=== PATIENT | female | born 1935 | race American Indian/Alaskan Native ===

== ENCOUNTER 2016-05-25 06:28 | Emergency (ER) | payer MEDICARE ==
[2016-05-25 22:52] LABS: Hematocrit 33.7 % (30.3-42.9); Hemoglobin 11.3 gm/dl (10.1-14.3); Mean Corpuscular HGB Conc 34 % (30-34); Mean Corpuscular Hemoglobin 36 pg (28-32); Mean Corpuscular Volume 108 fl (79-97); Platelet Count 146 K/mm3 (140-440); Red Blood Count 3.13 M/mm3 (3.65-5.03); White Blood Count 5.2 K/mm3 (4.5-11.0)
[2016-05-25 23:17] LABS: Albumin 2.6 g/dL (3.9-5); Albumin/Globulin Ratio 0.6 %; Bilirubin,Total 2.7 mg/dL (0.1-1.2); Calcium 8.5 mg/dL (8.4-10.2); Chloride 94.8 mmol/L (98-107); Potassium 3.2 mmol/L (3.6-5.0); Total Protein 7.2 g/dL (6.3-8.2)
[2016-05-25] MEDS ORDERED: ZOFRAN IV ONE (23:19)
[2016-05-25] MEDS ORDERED: TYLENOL #3 PO ONE (23:19)
--- NOTE | 2016-05-25 23:35 | Emergency Department Report ---
HPI - General Chief Complaint: Abdominal Pain Time Seen by Provider: 05/25/16 21:12 - HPI HPI: The patient is a 80-year-old female who presents for evaluation of abdominal pain. The patient has a history of end-stage renal disease. The patient reports epigastric abdominal pain for the past 2 days, on and off, constant since this afternoon, cramping in quality, mild in severity, and associated with nausea, nonbilious, nonbloody emesis, multiple episodes of loose watery stools. She says that her has exhibited similar symptoms over the past 2 days. The patient denies fever, chills, night sweats, chest pain, dyspnea, blood in the stool, dark tarry stool, dysuria, hematuria, flank pain, genital discharge, inability to pass flatus. ED Past Medical Hx - Past Medical History Previous Medical History?: Yes Hx Hypertension: Yes Hx Congestive Heart Failure: Yes Hx GERD: Yes Hx Liver Disease: Yes Hx Renal Disease: Yes Hx Arthritis: Yes Hx Kidney Stones: Yes Hx HIV: No Additional medical history: hep c/ lymphedema - Surgical History Past Surgical History?: Yes Hx Breast Surgery: Yes (mastectomy R.) Additional Surgical History: Fistula placement to left arm. - Social History Smoking Status: Former Smoker Substance Use Type: None - Medications Home Medications: Home Medications Medication Instructions Recorded Confirmed Last Taken Type Calcium Acetate 667 mg PO TID 06/05/13 02/12/16 03/24/15 History Enalapril Maleate (Nf) 10 mg PO DAILY 06/05/13 02/12/16 03/24/15 History Simvastatin 20 mg PO HS 06/05/13 02/12/16 03/24/15 History ALBUTEROL Inhaler [ProAir HFA 2 puff INHALATION QID 04/09/14 02/12/16 03/24/15 History Inhaler] Carvedilol [Coreg] 3.125 mg PO BID 04/22/14 02/12/16 03/24/15 History Aspirin 81 mg PO DAILY 09/25/15 02/12/16 Unknown History Furosemide 80 mg PO DAILY 09/25/15 02/12/16 Unknown History Isosorbide Mononitrate 20 mg PO DAILY 09/25/15 02/12/16 Unknown History Dorothy-Jesu Rx Tablet 1 tab PO DAILY 09/25/15 02/12/16 Unknown History Acetaminophen/Codeine [Tylenol #3] 1 tab PO Q6H PRN #12 tab 05/26/16 Unknown Rx Ondansetron [Zofran TAB] 4 mg PO Q8HR PRN #14 tablet 05/26/16 Unknown Rx ED Review of Systems ROS: Stated complaint: DIARRHEA Other details as noted in HPI Constitutional: denies: fever ENT: denies: throat or neck pain Respiratory: denies: cough, shortness of breath Cardiovascular: denies: chest pain Endocrine: denies unexplained weight loss or gain Gastrointestinal: reports abdominal pain, nausea Genitourinary: denies: dysuria Musculoskeletal: denies: leg swelling Skin: denies: rash Neurological: denies: headache Hematological/Lymphatic: denies: easy bleeding or easy bruising Psych: denies sadness or hopelessness Physical Exam - Physical Exam Vital Signs: Vital Signs 05/25/16 05/25/16 05/25/16 06:40 20:29 20:34 Temperature 97.6 F 98.4 F Pulse Rate 73 80 Respiratory 18 18 18 Rate Blood Pressure 193/94 Blood Pressure 179/86 [Left] O2 Sat by Pulse 97 98 98 Oximetry Physical Exam: General: well-nourished, well-developed, no acute distress Head: Normocephalic, atraumatic Eyes: normal sclera ENT: Mucous membranes are pink and moist Neck: trachea midline, neck supple, No neck stiffness, no cervical adenopathy Respiratory: Breath sounds equal bilaterally, no wheezing, rales, or rhonchi Cardio: S1 and S2 present, no murmurs, rubs, gallops, capillary refill is brisk Abdomen: Normoactive bowel sounds, soft abdomen, epigastric and periumbilical tenderness to palpation present, no rigidity, no guarding or rebound tenderness Musc: No pitting edema Skin: No rash Neuro: no facial drooping, normal speech Psych: Normal affect ED Course Vital Signs 05/25/16 05/25/16 05/25/16 06:40 20:29 20:34 Temperature 97.6 F 98.4 F Pulse Rate 73 80 Respiratory 18 18 18 Rate Blood Pressure 193/94 Blood Pressure 179/86 [Left] O2 Sat by Pulse 97 98 98 Oximetry ED Medical Decision Making - Lab Data Result diagrams: 05/25/16 06:47 05/25/16 22:05 - Medical Decision Making The patient was seen and examined by myself. The patient is placed on a cardiac catheterization technician and continuous pulse ox. On initial evaluation, the patient was found to be in no distress. Evaluation orders are placed. IV access is established and the patient is given IV Zofran for nausea, and a Tylenol 3 tablet for her pain. Lab results were non-concerning, and grossly consistent with previous history. The patient was reevaluated and reported that her abdominal pain and nausea were completely resolved. As the patient is afebrile , without leukocytosis, and with completely resolved abdominal pain, and no tenderness remaining on examination, the patient is stable for discharge with outpatient follow-up. The patient is given follow-up and return instructions. The patient expressed understanding and agreed with the plan. The patient is discharged in stable condition. Critical care attestation.: If time is entered above; I have spent that time in minutes in the direct care of this critically ill patient, excluding procedure time. ED Disposition Clinical Impression: Epigastric abdominal pain, ESRD on dialysis, Nausea and vomiting in adult Disposition: DISCHARGED TO HOME OR SELFCARE Is pt being admited?: No Does the pt Need Aspirin: No Condition: Stable Instructions: Abdominal Pain (ED) Referrals: ALEJO MORTON MD [Primary Care Provider] - 3-5 Days Time of Disposition: 23:38
[2016-05-26 00:54] LABS: Blastocytes % (Manual) 0 %
[2016-05-26 00:56] LABS: Anisocytosis 1+; Diff Status Complete; Hypochromasia 1+
[2016-05-26 01:34] VITALS: BP 173/65
== END 2016-05-26 01:33 | disposition home or self-care (01) ==
LOC: ED 06:28
DX: I12.0 Hypertensive chronic kidney disease with stage 5 chronic kidney disease or end stage renal disease (principal); N18.6 End stage renal disease; R10.13 Epigastric pain; R11.2 Nausea with vomiting, unspecified; K21.9 Gastro-esophageal reflux disease without esophagitis; M19.90 Unspecified osteoarthritis, unspecified site; I50.9 Heart failure, unspecified; Z99.2 Dependence on renal dialysis; Z87.891 Personal history of nicotine dependence; Z79.82 Long term (current) use of aspirin
CPT/HCPCS: 36415; 80053; 83690; 85007; 85025; 96374; 99284; J2405

== ENCOUNTER 2016-05-28 07:23 | Inpatient (IN) | payer MEDICARE ==
--- NOTE | 2016-05-28 08:20 | Emergency Department Report ---
- General Chief complaint: Weakness Stated complaint: FEELING WEAK Time Seen by Provider: 05/28/16 08:02 Source: patient, EMS, old records reviewed (cath 05/2013: ef 35-40%, nonobstructive cad 30% proximal LAD and RCA lesion) Mode of arrival: Stretcher Limitations: No Limitations - History of Present Illness Initial comments: 80 year old female with a past medical history of end-stage renal disease on dialysis, CHF, hypertension, liver disease/hep C, breast cancer status post right mastectomy with lymphedema since the hospital complaining of generalized weakness and lightheadedness with near-syncope this a.m. Symptoms noticed this morning when standing and trying to ambulate. Symptoms worse with standing and ambulation and improved sitting and at rest. Patient was seen here 2 days ago for nausea, vomiting, and diarrhea. She states symptoms overall are improving and she is no longer having vomiting or diarrhea. She is tolerating food and liquid intake. She continues to take the recently prescribed Tylenol 3 and Zofran as needed for nausea and pain. Patient states the medication makes her feel drowsy. Patient went to dialysis on the as scheduled and reported that she had some persistent bleeding from the access afterwards. Patient complained of some mild right upper quadrant and epigastric abdominal pain that improved with prescribed medications. No complaints of chest pain or shortness of breath. - Related Data Home Medications Medication Instructions Recorded Confirmed Last Taken Calcium Acetate 667 mg PO TID 06/05/13 02/12/16 03/24/15 Enalapril Maleate (Nf) 10 mg PO DAILY 06/05/13 02/12/16 03/24/15 Simvastatin 20 mg PO HS 06/05/13 02/12/16 03/24/15 ALBUTEROL Inhaler [ProAir HFA 2 puff INHALATION QID 04/09/14 02/12/16 03/24/15 Inhaler] Carvedilol [Coreg] 3.125 mg PO BID 04/22/14 02/12/16 03/24/15 Aspirin 81 mg PO DAILY 09/25/15 02/12/16 Unknown Furosemide 80 mg PO DAILY 09/25/15 02/12/16 Unknown Isosorbide Mononitrate 20 mg PO DAILY 09/25/15 02/12/16 Unknown Dorothy-Jesu Rx Tablet 1 tab PO DAILY 09/25/15 02/12/16 Unknown Previous Rx's Medication Instructions Recorded Last Taken Type Acetaminophen/Codeine [Tylenol #3] 1 tab PO Q6H PRN #12 tab 05/26/16 Unknown Rx Ondansetron [Zofran TAB] 4 mg PO Q8HR PRN #14 tablet 05/26/16 Unknown Rx Allergies Allergy/AdvReac Type Severity Reaction Status Date / Time Penicillins Allergy Intermediate Itching Verified 05/29/15 12:44 Sulfa (Sulfonamide Allergy Intermediate Itching Verified 05/29/15 12:44 Antibiotics) levofloxacin [From Levaquin] Allergy Itching Verified 05/29/15 12:44 ED Review of Systems ROS: Stated complaint: FEELING WEAK Other details as noted in HPI Comment: All other systems reviewed and negative Other: Constitutional: No fevers chills Eyes: No eye pain visual changes ENT: No ear pain or throat pain Neck: Denies pain Respiratory: Denies cough wheezing shortness of breath Cardiovascular: Denies chest pain, palpitations GI: Denies nausea, vomiting, diarrhea : Denies dysuria Musculoskeletal: Denies back pain Skin: Denies rash, lesions, erythema Neurologic: Denies headache, numbness Psychiatric: Denies suicidal ideation, hallucinations ED Past Medical Hx - Past Medical History Hx Hypertension: Yes Hx Congestive Heart Failure: Yes Hx GERD: Yes Hx Liver Disease: Yes Hx Renal Disease: Yes Hx Arthritis: Yes Hx Kidney Stones: Yes Hx HIV: No Additional medical history: hep c/ lymphedema - Surgical History Hx Breast Surgery: Yes (mastectomy R.) Additional Surgical History: Fistula placement to left arm. - Social History Smoking Status: Never Smoker Substance Use Type: None - Medications Home Medications: Home Medications Medication Instructions Recorded Confirmed Last Taken Type Calcium Acetate 667 mg PO TID 06/05/13 02/12/16 03/24/15 History Enalapril Maleate (Nf) 10 mg PO DAILY 06/05/13 02/12/16 03/24/15 History Simvastatin 20 mg PO HS 06/05/13 02/12/16 03/24/15 History ALBUTEROL Inhaler [ProAir HFA 2 puff INHALATION QID 04/09/14 02/12/16 03/24/15 History Inhaler] Carvedilol [Coreg] 3.125 mg PO BID 04/22/14 02/12/16 03/24/15 History Aspirin 81 mg PO DAILY 09/25/15 02/12/16 Unknown History Furosemide 80 mg PO DAILY 09/25/15 02/12/16 Unknown History Isosorbide Mononitrate 20 mg PO DAILY 09/25/15 02/12/16 Unknown History Dorothy-Jesu Rx Tablet 1 tab PO DAILY 09/25/15 02/12/16 Unknown History Acetaminophen/Codeine [Tylenol #3] 1 tab PO Q6H PRN #12 tab 05/26/16 Unknown Rx Ondansetron [Zofran TAB] 4 mg PO Q8HR PRN #14 tablet 05/26/16 Unknown Rx ED Physical Exam - General Limitations: No Limitations - Other Other exam information: General: No limitations, patient is alert in no acute distress Head exam: Atraumatic, normocephalic Eyes exam: Normal appearance ENT: Moist mucous membrane, normal oropharynx Neck exam: Normal inspection, full range of motion, no meningismus nontender Respiratory exam: Clear to auscultation bilateral, no wheezes, rales, crackles, right mastectomy Cardiovascular: Normal rate and rhythm, normal heart sounds Abdomen: Soft, nondistended, and nontender, with normal bowel sounds, no rebound, or guarding Extremity: Full range of motion, right arm Allyssa swelling secondary to lymphedema , left arm dialysis access with positive thrill Back: Normal Inspection, full range of motion, no tenderness Neurologic: Alert, oriented x3, cranial nerves intact, no motor or sensory deficit Psychiatric: normal affect, normal mood Skin: Warm, dry, intact ED Course Vital Signs 05/28/16 05/28/16 07:58 08:50 Temperature 97.4 F L Pulse Rate 60 Respiratory 16 18 Rate Blood Pressure 184/91 O2 Sat by Pulse 93 99 Oximetry - Reevaluation(s) Reevaluation #1: 05/28/16 09:25 orthostatic vitals were negative but it should be noted that Bp was obtained from leg since pt has lympedema of the right arm and dialysis access on the right 05/28/16 09:38 - Consultations Consultation #1: 05/28/16 10:36 case d/w Dr. Reyez Nephrology, will consult ED Medical Decision Making - Lab Data Result diagrams: 05/28/16 08:48 05/28/16 08:48 Lab Results 05/28/16 05/28/16 05/28/16 Range/Units 08:48 08:48 08:48 WBC 5.0 (4.5-11.0) K/mm3 RBC 3.10 L (3.65-5.03) M/mm3 Hgb 11.4 (10.1-14.3) gm/dl Hct 34.0 (30.3-42.9) % MCV 110 H (79-97) fl MCH 37 H (28-32) pg MCHC 33 (30-34) % RDW 15.9 H (13.2-15.2) % Plt Count 146 (140-440) K/mm3 PT 12.4 (12.2-14.9) Sec. INR 0.93 (0.87-1.13) APTT 29.5 (24.2-36.6) Sec. Sodium 136 L (137-145) mmol/L Potassium 3.7 (3.6-5.0) mmol/L Chloride 91.0 L (98-107) mmol/L Carbon Dioxide 28 (22-30) mmol/L Anion Gap 21 mmol/L BUN 29 H (7-17) mg/dL Creatinine 5.1 H (0.7-1.2) mg/dL Estimated GFR 10 ml/min BUN/Creatinine Ratio 5.68 % Glucose 93 (65-100) mg/dL Calcium 8.9 (8.4-10.2) mg/dL Magnesium (1.7-2.3) mg/dL Total Bilirubin 1.9 H (0.1-1.2) mg/dL AST 66 H (5-40) units/L ALT 31 (7-56) units/L Alkaline Phosphatase 291 H (35-129) units/L Total Creatine Kinase 57 (30-135) units/L CK-MB (CK-2) 2.0 (0.0-4.0) ng/mL CK-MB (CK-2) Rel Index 3.5 (0-4) Troponin T 0.151 H* (0.00-0.029) ng/mL Total Protein 8.0 (6.3-8.2) g/dL Albumin 2.9 L (3.9-5) g/dL Albumin/Globulin Ratio 0.6 % Triglycerides 214 H (2-149) mg/dL Cholesterol 136 (50-199) mg/dL LDL Cholesterol Direct 39 L (50-130) mg/dL HDL Cholesterol 55 (40-59) mg/dL Cholesterol/HDL Ratio 2.47 % TSH (0.270-4.200) mlU/mL Free T4 (0.76-1.46) ng/dL 05/28/16 05/28/16 Range/Units 08:48 08:48 WBC (4.5-11.0) K/mm3 RBC (3.65-5.03) M/mm3 Hgb (10.1-14.3) gm/dl Hct (30.3-42.9) % MCV (79-97) fl MCH (28-32) pg MCHC (30-34) % RDW (13.2-15.2) % Plt Count (140-440) K/mm3 PT (12.2-14.9) Sec. INR (0.87-1.13) APTT (24.2-36.6) Sec. Sodium (137-145) mmol/L Potassium (3.6-5.0) mmol/L Chloride (98-107) mmol/L Carbon Dioxide (22-30) mmol/L Anion Gap mmol/L BUN (7-17) mg/dL Creatinine (0.7-1.2) mg/dL Estimated GFR ml/min BUN/Creatinine Ratio % Glucose (65-100) mg/dL Calcium (8.4-10.2) mg/dL Magnesium 2.0 (1.7-2.3) mg/dL Total Bilirubin (0.1-1.2) mg/dL AST (5-40) units/L ALT (7-56) units/L Alkaline Phosphatase (35-129) units/L Total Creatine Kinase (30-135) units/L CK-MB (CK-2) (0.0-4.0) ng/mL CK-MB (CK-2) Rel Index (0-4) Troponin T (0.00-0.029) ng/mL Total Protein (6.3-8.2) g/dL Albumin (3.9-5) g/dL Albumin/Globulin Ratio % Triglycerides (2-149) mg/dL Cholesterol (50-199) mg/dL LDL Cholesterol Direct (50-130) mg/dL HDL Cholesterol (40-59) mg/dL Cholesterol/HDL Ratio % TSH 4.940 H (0.270-4.200) mlU/mL Free T4 1.31 (0.76-1.46) ng/dL - EKG Data -: EKG Interpreted by Me (sinus, 65, PVC and pac's) - EKG Data When compared to previous EKG there are: changes noted (compared to 09/2014) - Medical Decision Making Plan to admit pt to hospital for further monitoring. This is patient's second ED visit in the last several days and she presents with near-syncope/ lightheaded episodes. Cause is not identified in the ED. Troponin elevated but appears to be at her baseline. Patient does have some bradycardia with PACs and PVCs on EKG which are new. No electrolyte abnormalities identified. - Differential Diagnosis anemia, dehydration, infection, arrhythmia Critical Care Time: No Critical care attestation.: If time is entered above; I have spent that time in minutes in the direct care of this critically ill patient, excluding procedure time. ED Disposition Clinical Impression: Near syncope, ESRD on dialysis, Bradycardia, HTN (hypertension) Disposition: OP ADMITTED IP TO THIS HOSP Is pt being admited?: Yes Condition: Stable Time of Disposition: 10:39 (Dr hampton/hosp)
[2016-05-28 09:22] LABS: INR 0.93 (0.87-1.13)
[2016-05-28 09:23] LABS: Partial Thromboplastin Time 29.5 Sec. (24.2-36.6)
[2016-05-28 09:24] LABS: Albumin 2.9 g/dL (3.9-5); Albumin/Globulin Ratio 0.6 %; BUN/Creatinine Ratio 5.68; Bilirubin,Total 1.9 mg/dL (0.1-1.2); Calcium 8.9 mg/dL (8.4-10.2); Potassium 3.7 mmol/L (3.6-5.0)
[2016-05-28 09:32] LABS: Hemoglobin 11.4 gm/dl (10.1-14.3); Mean Corpuscular HGB Conc 33 % (30-34); Mean Corpuscular Hemoglobin 37 pg (28-32); Mean Corpuscular Volume 110 fl (79-97); Platelet Count 146 K/mm3 (140-440); Red Cell Distribution Width 15.9 % (13.2-15.2)
--- NOTE | 2016-05-28 11:23 | History and Physical Report ---
History of Present Illness Date of examination: 05/28/16 Date of admission: 05/28/16 Chief complaint: Dizziness, Near syncope History of present illness: Patient is 80 yo with ESRD, chronic CHF, hypertension. She presents with episode of dizziness and felt like she was going to pass out. She denies any chest pain or shortness of breath. She mentions she has had diarrhea for 3 days but has now dissolved. In addition she mentions intermittent abdominal pain from gall stones. She was supposed to follow with Surgeon but has not gone yet. She is being admitted. Past History Past Medical History: cancer (history of breast cancer), ESRD, heart failure ( chronic systolic CHF), hypertension, hyperlipidemia, other (lymphedema) Past Surgical History: mastectomy, Other (LUE fistula) Social history: , smoking (No smoke), alcohol abuse (No alcohol) Medications and Allergies Allergies Allergy/AdvReac Type Severity Reaction Status Date / Time Penicillins Allergy Intermediate Itching Verified 05/29/15 12:44 Sulfa (Sulfonamide Allergy Intermediate Itching Verified 05/29/15 12:44 Antibiotics) levofloxacin [From Levaquin] Allergy Itching Verified 05/29/15 12:44 Home Medications Medication Instructions Recorded Confirmed Last Taken Type Calcium Acetate 667 mg PO TID 06/05/13 05/28/16 03/24/15 History Enalapril Maleate (Nf) 10 mg PO DAILY 06/05/13 05/28/16 03/24/15 History Simvastatin 20 mg PO HS 06/05/13 05/28/16 03/24/15 History Carvedilol [Coreg] 3.125 mg PO BID 04/22/14 05/28/16 03/24/15 History Aspirin 81 mg PO DAILY 09/25/15 05/28/16 Unknown History Furosemide 80 mg PO DAILY 09/25/15 05/28/16 Unknown History Isosorbide Mononitrate 20 mg PO DAILY 09/25/15 05/28/16 Unknown History Dorothy-Jesu Rx Tablet 1 tab PO DAILY 09/25/15 05/28/16 Unknown History Review of Systems All systems: negative (No chest pain, no SOB, no cough, no leg pain,no fever. All other systems reviewed and are negative) Exam - Physical Exam Narrative exam: Gen appearance : Not in acute distres, HEENT: Normocephalic atraumatic Neck: supple, no JVD. Lungs: Normal breath sounds bilaterally, no crackles, no wheeze Heart: S1 and S2 regular, no murmurs, rubs or gallop Abdomen: soft, non-tender, non-distended, normal bowel sounds Extremities: Lymphedema, no clubbing or cyanosis Neuro : Awake alert oriented 3, no focal signs skin; no rashes - Constitutional Vitals: Temp Pulse Resp BP Pulse Ox 97.4 F L 60 18 184/91 99 05/28/16 07:58 05/28/16 07:58 05/28/16 08:50 05/28/16 07:58 05/28/16 08:50 - EENT Eyes: Present: exopthalmos Results - Labs CBC & Chem 7: 05/28/16 08:48 05/28/16 08:48 Labs: Abnormal lab results 05/28/16 05/28/16 05/28/16 Range/Units 08:48 08:48 08:48 RBC 3.10 L (3.65-5.03) M/mm3 MCV 110 H (79-97) fl MCH 37 H (28-32) pg RDW 15.9 H (13.2-15.2) % Sodium 136 L (137-145) mmol/L Chloride 91.0 L (98-107) mmol/L BUN 29 H (7-17) mg/dL Creatinine 5.1 H (0.7-1.2) mg/dL Total Bilirubin 1.9 H (0.1-1.2) mg/dL AST 66 H (5-40) units/L Alkaline Phosphatase 291 H (35-129) units/L Troponin T 0.151 H* (0.00-0.029) ng/mL Albumin 2.9 L (3.9-5) g/dL Triglycerides 214 H (2-149) mg/dL LDL Cholesterol Direct 39 L (50-130) mg/dL TSH 4.940 H (0.270-4.200) mlU/mL Assessment and Plan Near syncope episode. Etiology unclear. Admit to Telemetry. Obtain Orthostatic vitals. This is however difficult to interpret because she has lymphedema upper ext and BP measured on leg. Get Echocardiogram. ESRD on dialysis. Consult Nephrology Chronic systolic CHF. No acute exacerbation. Hypertension. Resume home meds. Hyperlipidemia Chronic abdominal pain. To follow with Surgeon, Dr. Buckley as outpatient for cholecystectomy. DVT prophylaxis with Heparin. Full code status.
[2016-05-28] MEDS ORDERED: DULCOLAX PR PRN (11:24)
[2016-05-28] MEDS ORDERED: TYLENOL PO PRN (11:24)
--- NOTE | 2016-05-28 11:53 | Admit Criteria Form ---
Admission Criteria Documentation: RENAL FAILURE, CHRONIC Clinical Indications for Admission to Inpatient Care (Place 'X' for any and all applicable criteria): Admission is indicated for ANY ONE of the following (1)(2)(3)(4)(5): [X]I. Inpatient admission required rather than observation care (Use Renal Failure, Chronic: Observation Care Criteria as appropriate) because of ANY ONE of the following: [ ]a) Volume overload or uremic symptoms (eg, clinically significant pulmonary edema, hypertension, pericarditis, acidosis) too severe for, or not responsive (eg, for over 24 hours) to emergency department or observation care dialysis or treatment regimen (11) [ ]b) Hemodynamic instability that is severe or persistent [ ]c) Respiratory distress that is severe or persistent (11) [X]d) Clinically significant electrolyte abnormality that requires inpatient care (eg,hyperkalemia with severe ECG findings)[B] [ ]e) Supplement O2 or respiratory therapy for over 24hrs that is performable only in acute inpatient setting [ ]f) Continuous IV infusion of anticoagulation, platelet inhibitor, vasoactive, or Antiarrhythmic medication (15), [ ]g) Pulmonary artery catheter monitoring [ ]h) Temporary pacemaker placement [ ]i) Emergent pericardiocentesis [ ]j) Other condition, treatment or monitoring requiring inpatient admission [X]II. Unexplained syncope [A] [ ]III. Recurrent seizures [ ]IV. Severe infections not treatable in outpatient setting (eg, peritonitis)(9 ) [ ]V. Cardiac arrhythmias of immediate concern [ ]. Encephalopathy [ ]VII.Bleeding abnormalities (eg, platelet dysfunction) with active (eg, gastrointestinal) bleeding Extended stay beyond goal length of stay may be needed for (3)(4)(35)(36): [ ]a) Continuing uremic complications [ ]b) Comorbidities or complications The original [employer] content created by [employer] has been revised. The portions of the content which have been revised are identified through the use of italic text or in bold, and [employer] [facility] has neither reviewed nor approved the modified material. All other unmodified content is copyright [employer]. Please see references footnoted in the original [employer] [facility] edition 2016 Admission Criteria Met: Yes
--- NOTE | 2016-05-28 14:33 | Consultation ---
History of Present Illness - Reason for Consult Consult date: 05/28/16 end stage renal disease Requesting physician: ROBERTO BROOKS - History of Present Illness This is a 80 y.o. -[place] female, well known to our group from outpatient hemodialysis treatement, who has PMHx of hypertension, dyslipidemia, chronic systolic CHF with EF 30-35%, hepatitis C, history of breast cancer and chronic lymphedema of right upper extremity and end-stage renal disease on hemodialysis Saturday, , Saturday schedule, who presented to the ER today , complaining of generalized weakness, along with light headedness with near syncopal episode this AM. patient reports that she felt dizzy, when she tried to stand up and ambulate. pt never lost consciousness, denies chest pain, palpitations, fever, chills, abdominal pain, dysuria. Pt was seen in ER about 2- 3 days ago for nausea, vomiting and diarrhea for several days, which meanwhile subsided about 1 day ago, she is now tolerating food and liquid intake. She continues to take the recently prescribed Tylenol 3 and Zofran as needed for nausea and pain, which makes her feel drowsy at times. patient had routine HD on Sat, was noted to have some bleeding from access, which subsided with compression. Renal consult is requested for management of ESRD on HD. Past History Past Medical History: anemia, cancer (h/o breast cancer), dialysis, ESRD, hepatitis, hypertension, hyperlipidemia Past Surgical History: Other (mastectomy, LUE AVF) Social history: , lives with family, full code. denies: smoking, alcohol abuse, prescription drug abuse Family history: CAD (father / sister ), stroke (father ) Medications and Allergies Allergies Allergy/AdvReac Type Severity Reaction Status Date / Time Penicillins Allergy Intermediate Itching Verified 05/29/15 12:44 Sulfa (Sulfonamide Allergy Intermediate Itching Verified 05/29/15 12:44 Antibiotics) levofloxacin [From Levaquin] Allergy Itching Verified 05/29/15 12:44 Home Medications Medication Instructions Recorded Confirmed Last Taken Type Calcium Acetate 667 mg PO TID 06/05/13 05/28/16 03/24/15 History Enalapril Maleate (Nf) 10 mg PO DAILY 06/05/13 05/28/16 03/24/15 History Simvastatin 20 mg PO HS 06/05/13 05/28/16 03/24/15 History Carvedilol [Coreg] 3.125 mg PO BID 04/22/14 05/28/16 03/24/15 History Aspirin 81 mg PO DAILY 09/25/15 05/28/16 Unknown History Furosemide 80 mg PO DAILY 09/25/15 05/28/16 Unknown History Isosorbide Mononitrate 20 mg PO DAILY 09/25/15 05/28/16 Unknown History Dorothy-Jesu Rx Tablet 1 tab PO DAILY 09/25/15 05/28/16 Unknown History Active Meds: Active Medications Acetaminophen (Tylenol) 650 mg PO Q4H PRN PRN Reason: Pain MILD(1-3)/Fever >100.5/NAVARRO Bisacodyl (Dulcolax) 10 mg OR QDAY PRN PRN Reason: Constipation unrelieved by MOM Ondansetron HCl (Zofran) 4 mg IV Q8H PRN PRN Reason: nausea or vomiting Review of Systems All systems: negative Constitutional: weakness, malaise Cardiovascular: no syncope, no lightheadedness Exam - Vital Signs Vital signs: Vital Signs Temp Pulse Resp BP Pulse Ox 97.4 F L 60 16 184/91 93 05/28/16 07:58 05/28/16 07:58 05/28/16 07:58 05/28/16 07:58 05/28/16 07:58 - General Appearance General appearance: appears stated age, cachectic, chronically ill EENT: ATNC, PERRL, mucous membranes moist Neck: Present: neck supple Respiratory: Clear to Ascultation Heart: regular, S1S2 Gastrointestinal: Present: normal, normoactive bowel sounds Integumentary: no rash, other (RUE edema ) Neurologic: no focal deficit, alert and oriented x3, strength 5/5, CN 3-12 intact Psychiatric: mood/affect appropriate, cooperative Results - Lab Results 05/28/16 08:48 05/28/16 08:48 Most recent lab results Calcium 8.9 mg/dL (8.4-10.2) 05/28/16 08:48 Magnesium 2.0 mg/dL (1.7-2.3) 05/28/16 08:48 Laboratory Tests 05/22/16 05/22/16 05/22/16 11:57 12:03 12:03 PT 14.9 INR 1.15 H D-Dimer 1441.36 H Troponin T 0.171 H* NT-Pro-B Natriuret Pep 04640 H Total Protein 8.1 Albumin 3.3 L Triglycerides 162 H Cholesterol 149 LDL Cholesterol Direct 46 L HDL Cholesterol 71 H Cholesterol/HDL Ratio 2.09 TSH Free T4 Urine Turbidity Urine pH Ur Specific [place] Urine Protein Urine Glucose (UA) Urine Ketones Urine Nitrite Urine Urobilinogen Ur Leukocyte Esterase Urine WBC (Auto) Urine RBC (Auto) U Epithel Cells (Auto) 09/25/15 05/28/16 05/28/16 16:00 08:48 08:48 PT INR D-Dimer Troponin T 0.151 H* NT-Pro-B Natriuret Pep Total Protein Albumin Triglycerides 214 H Cholesterol 136 LDL Cholesterol Direct 39 L HDL Cholesterol 55 Cholesterol/HDL Ratio TSH 4.940 H Free T4 1.31 Urine Turbidity Clear Urine pH 8.5 H Ur Specific [place] 1.020 Urine Protein >2000 mg dl Urine Glucose (UA) Negative Urine Ketones 160 Urine Nitrite Negative Urine Urobilinogen < 2.0 Ur Leukocyte Esterase Small Urine WBC (Auto) 3.0 Urine RBC (Auto) > 182.0 U Epithel Cells (Auto) 3.0 Assessment and Plan Assessment: 1. ESRD on HD on T/T/S schedule 2. Pre-syncope, likely due to volume depletion in the setting of recent n/v 3. hypertension 4. chronic systolic HF 30-35% 5. Hep C 6. Anemia of ESRD 7. elevated troponin Plan: - will continue HD on T/T/S - pt with stable BP currently, IVF prn for hypotensive episodes. check orthostatics, syncope work up as per primary attending. - elevated troponin most likely due to ESRD, patient currently without acute chest pain.
[2016-05-28] MEDS ORDERED: NACL 0.9% 1000 ML 100 ML IV PRN (14:53)
[2016-05-28] MEDS: ZOFRAN IV PRN ×2 (19:04→22:19)
[2016-05-28] MEDS: APRESOLINE IV SCH ×2 (22:10→23:54)
[2016-05-28] MEDS ORDERED: NORCO 5/325 PO ONE (23:35)
[2016-05-29] MEDS ORDERED: ZOFRAN IV PRN (02:30)
[2016-05-29] MEDS: APRESOLINE IV SCH (02:57)
[2016-05-29] MEDS ORDERED: MORPHINE IV ONE (05:43)
--- NOTE | 2016-05-29 08:51 | Echocardiography Report ---
Transthoracic Echocardiogram Indication: SYNCOPE BP: 209/125 Conclusions *1. 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 *2. Moderate MR. *3. Aortic valve sclerosis, minimal-no signif , mild AR. *4. Moderate-severe TR. *5. Moderate pulm HTN. Findings Left Ventricle: The left ventricular chamber size is moderately dilated. Mild concentric left ventricular hypertrophy is observed. Severe global hypokinesis of the left ventricle is observed. Global left ventricular systolic function is severely decreased. The estimated ejection fraction is 15-20%. Abnormal left ventricular diastolic filling is observed, consistent with impaired relaxation. Left Atrium: The left atrium is moderately dilated. Right Ventricle: The right ventricle is moderately dilated. The right ventricular global systolic function is moderately reduced. Right Atrium: The right atrium is moderate to severely dilated. The interatrial septum appears normal. Aortic Valve: The aortic valve is trileaflet. The aortic valve leaflets are moderately thickened. Mild aortic leaflet calcification is visualized. There is mild aortic regurgitation. There is no evidence of aortic stenosis. Mitral Valve: The mitral valve leaflets appear myxomatous. There is mitral annular calcification. The mitral valve leaflets are mildly thickened. Mild mitral leaflet calcification is visualized. There is moderate mitral regurgitation. There is no evidence of mitral stenosis. 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 There is moderate to severe tricuspid regurgitation. The right ventricular systolic pressure is calculated at 42 mmHg. There is evidence of moderate pulmonary hypertension. There is no tricuspid stenosis. Pulmonic Valve: The pulmonic valve appears normal. There is mild pulmonic regurgitation. There is no pulmonic stenosis. Pericardium: There is no pericardial effusion. Aorta: There is no dilatation of the ascending aorta. There is no dilatation of the aortic root. Venous: The inferior vena cava appears normal in size. There is less than 50% respiratory change in the inferior vena cava dimension. Measurements Chambers MM Name Value Normal Range Ao root diameter (MM) 3.1 cm (2 - 3.7) LA dimension (AP) MM 3.9 cm (1.9 - 4) LA:Ao ratio (MM) 1.26 ratio - AV cusp separation (MM) 1.3 cm (1.5 - 2.6) MV EPSS 1.6 cm - Chambers 2D Name Value Normal Range RVIDd (AP) 2D 3.87 cm (0.9 - 2.6) IVSd (2D) 1.08 cm (0.6 - 1.1) LVPWd (2D) 1.04 cm (0.6 - 1.1) IVS:LVPW ratio (2D) 1.04 ratio - LVIDd (2D) 4.94 cm (3.7 - 5.6) LVIDs (2D) 4.08 cm (2 - 3.8) LV FS (Teichholz) (2D) 17.4 % - LV FS (cube) (2D) 17.4 % - EF Teichholz (2D) 36.2 % - LA dimension (AP) 2D 3.6 cm (1.9 - 4) Volumes/Mass Name Value Normal Range LA ESV SP 4CH (MOD) 53 ml - LA ESV SP 2CH (MOD) 52 ml - LA ESV BP (MOD) 53 ml - LA ESV BP (MOD) index 35.3 ml/m2 - LV EDV SP 4CH (MOD) 45 ml - LV ESV SP 4CH (MOD) 24 ml - EF SP 4CH (MOD) 47 % - LV EDV SP 2CH (MOD) 72 ml - LV ESV SP 2CH (MOD) 59 ml - EF SP 2CH (MOD) 18 % - LV EDV BP 61 ml - LV ESV BP 40 ml - BP EF (MOD) 34 % - Diastolic/Systolic Function Name Value Normal Range MV E-wave Vmax 0.54 m/sec - MV deceleration time 169 msec - MV A-wave Vmax 0.9 m/sec - MV E:A ratio 0.6 ratio - LV septal e' Vmax 0.03 m/sec - LV lateral e' Vmax 0.05 m/sec - LV E:e' septal ratio 21.2 ratio - LV E:e' lateral ratio 10.9 ratio - Aortic Valve Name Value Normal Range AV VTI 22.8 cm - AV mean gradient 4 mmHg - LVOT diameter 2 cm - LVOT VTI 14.8 cm - LVOT mean gradient 1 mmHg - SV LVOT 46 ml - VIPIN (continuity VTI) 2.04 cm2 - Mitral Valve Name Value Normal Range MV PHT 47 msec - MR Vmax 4.99 m/sec - MVA (PHT) 4.68 cm2 - Tricuspid Valve Name Value Normal Range TR Vmax 2.9 m/sec - TR peak gradient 34 mmHg - RAP 8 mmHg - RVSP 42 mmHg - Pulmonic Valve/Qp:Qs Name Value Normal Range PV Vmax 0.97 m/sec - PV peak gradient 4 mmHg - CA end-diastolic Vmax 1.32 m/sec - PV acceleration time 120 msec -
[2016-05-29] MEDS: APRESOLINE IV PRN ×2 (09:12→13:21)
--- NOTE | 2016-05-29 12:10 | Ultrasound Report ---
ULTRASOUND ABDOMEN LIMITED INDICATION: RUQ abdominal pain. COMPARISON: 09/25/[address] FINDINGS: Right upper quadrant ultrasound demonstrates grossly normal hepatic contours and echotexture without focal suspicious lesions or biliary dilatation. Few echogenic gallstones and gallbladder sludge again noted. Gallbladder wall thickness approximately 4.3 mm. Common bile duct again dilated, now approximately 14.5 mm, previously approximately 8 mm. Imaged pancreas grossly unremarkable. Nonaneurysmal abdominal aorta with few atherosclerotic changes. Unremarkable IVC. Right kidney again echogenic and atrophic, approximately 6.5 x 3.1 x 3.2 cm with cortical thickness of 0.7 cm. Approximately 1.0 cm right renal cortical cyst again noted. Small right pleural effusion also questioned. CONCLUSION: 1. Gallbladder sludge and stones with wall thickening again noted with increased CBD caliber in this patient with cystic duct obstruction also suspected before in September 2015 as well. Please correlate. 2. Various other incidental findings, including echogenic and atrophic right kidney with a cyst, aortic atherosclerotic calcifications and a possible right pleural effusion, amongst others, as above. Thank you for the opportunity to participate in this patient's care.
--- NOTE | 2016-05-29 12:30 | Progress Note ---
Assessment and Plan Assessment: 1. ESRD on HD on T/T/S schedule 2. Pre-syncope, likely due to volume depletion in the setting of recent n/v vs due to worsening CHF 3. hypertension 4. chronic systolic HF repeat Echo shows decreased EF of 15-20% 5. Hep C 6. Anemia of ESRD 7. elevated troponin 8. Cholelithiasis Plan: - will continue HD on T/T/S - pt with elevated BP, resume home BP meds, will titrate up enalapril - cardiology consult for management of CHF - hb at [facility] no need for EPO at present. d/w pt and family at bedside regarding renal care plan Subjective Date of service: 05/29/16 Interval history: patient with intermittent epigastric, RUQ abd pain, nausea. BP is elevated. Objective - Vital Signs Vital signs: Vital Signs - 12hr 05/29/16 05/29/16 05/29/16 03:07 04:20 08:00 Temperature 98.5 F 97.5 F L Pulse Rate 80 Pulse Rate [ 82 91 H Femoral] Respiratory 20 18 Rate Blood Pressure Blood Pressure 151/101 228/130 [Right Femoral Artery] O2 Sat by Pulse 96 100 Oximetry 05/29/16 09:12 Temperature Pulse Rate Pulse Rate [ Femoral] Respiratory Rate Blood Pressure 224/130 Blood Pressure [Right Femoral Artery] O2 Sat by Pulse Oximetry - Lab 05/28/16 08:48 05/28/16 08:48 Most recent lab results Calcium 8.9 mg/dL (8.4-10.2) 05/28/16 08:48 Magnesium 2.0 mg/dL (1.7-2.3) 05/28/16 08:48
[2016-05-29] MEDS ORDERED: CATAPRES PO STA (15:33)
--- NOTE | 2016-05-29 15:36 | Progress Note ---
Assessment and Plan Assessment and plan: Near syncope. Telemetry, Echo ESRD on dialysis. For dialysis today Chronic systolic CHF. Echo EF 15-20% HTN urgency. give Clonidine stat in addition to scheduled meds. Cholelithiasis. To follow with Surg as outpatient. DVT prophylaxis Full code status History Interval history: no more syncope, abdominal pain intermittent Hospitalist Physical - Physical exam Narrative exam: Gen appearance : Not in acute distres, HEENT: Normocephalic atraumatic Neck: supple, no JVD. Lungs: Normal breath sounds bilaterally, no crackles, no wheeze Heart: S1 and S2 regular, no murmurs, rubs or gallop Abdomen: soft, non-tender, non-distended, normal bowel sounds Extremities: Lymphedema, no clubbing or cyanosis Neuro : Awake alert oriented 3, no focal signs skin; no rashes - Constitutional Vitals: Temp Pulse Resp BP Pulse Ox 98.5 F 107 H 24 183/96 99 05/29/16 14:45 05/29/16 14:45 05/29/16 14:45 05/29/16 14:45 05/29/16 12:00 Results - Labs CBC & Chem 7: 05/28/16 08:48 05/28/16 08:48 Labs: Laboratory Last Values WBC 5.0 K/mm3 (4.5-11.0) 05/28/16 08:48 RBC 3.10 M/mm3 (3.65-5.03) L 05/28/16 08:48 Hgb 11.4 gm/dl (10.1-14.3) 05/28/16 08:48 Hct 34.0 % (30.3-42.9) 05/28/16 08:48 MCV 110 fl (79-97) H 05/28/16 08:48 MCH 37 pg (28-32) H 05/28/16 08:48 MCHC 33 % (30-34) 05/28/16 08:48 RDW 15.9 % (13.2-15.2) H 05/28/16 08:48 Plt Count 146 K/mm3 (140-440) 05/28/16 08:48 PT 12.4 Sec. (12.2-14.9) 05/28/16 08:48 INR 0.93 (0.87-1.13) 05/28/16 08:48 APTT 29.5 Sec. (24.2-36.6) 05/28/16 08:48 Sodium 136 mmol/L (137-145) L 05/28/16 08:48 Potassium 3.7 mmol/L (3.6-5.0) 05/28/16 08:48 Chloride 91.0 mmol/L (98-107) L 05/28/16 08:48 Carbon Dioxide 28 mmol/L (22-30) 05/28/16 08:48 Anion Gap 21 mmol/L 05/28/16 08:48 BUN 29 mg/dL (7-17) H 05/28/16 08:48 Creatinine 5.1 mg/dL (0.7-1.2) H 05/28/16 08:48 Estimated GFR 10 ml/min 05/28/16 08:48 BUN/Creatinine Ratio 5.68 % 05/28/16 08:48 Glucose 93 mg/dL (65-100) 05/28/16 08:48 Calcium 8.9 mg/dL (8.4-10.2) 05/28/16 08:48 Magnesium 2.0 mg/dL (1.7-2.3) 05/28/16 08:48 Total Bilirubin 1.9 mg/dL (0.1-1.2) H 05/28/16 08:48 AST 66 units/L (5-40) H 05/28/16 08:48 ALT 31 units/L (7-56) 05/28/16 08:48 Alkaline Phosphatase 291 units/L (35-129) H 05/28/16 08:48 Total Creatine Kinase 57 units/L (30-135) 05/28/16 08:48 CK-MB (CK-2) 2.0 ng/mL (0.0-4.0) 05/28/16 08:48 CK-MB (CK-2) Rel Index 3.5 (0-4) 05/28/16 08:48 Troponin T 0.151 ng/mL (0.00-0.029) H* 05/28/16 08:48 Total Protein 8.0 g/dL (6.3-8.2) 05/28/16 08:48 Albumin 2.9 g/dL (3.9-5) L 05/28/16 08:48 Albumin/Globulin Ratio 0.6 % 05/28/16 08:48 Triglycerides 214 mg/dL (2-149) H 05/28/16 08:48 Cholesterol 136 mg/dL (50-199) 05/28/16 08:48 LDL Cholesterol Direct 39 mg/dL (50-130) L 05/28/16 08:48 HDL Cholesterol 55 mg/dL (40-59) 05/28/16 08:48 Cholesterol/HDL Ratio 2.47 % 05/28/16 08:48 TSH 4.940 mlU/mL (0.270-4.200) H 05/28/16 08:48 Free T4 1.31 ng/dL (0.76-1.46) 05/28/16 08:48
[2016-05-29] MEDS ORDERED: ENALAPRIL MALEATE 10 MG PO SCH (15:45)
[2016-05-29] MEDS ORDERED: FUROSEMIDE 80 MG PO SCH (15:45)
[2016-05-29] MEDS ORDERED: NON-FORMULARY (Aspirin 81 MG) PO SCH (15:45)
[2016-05-29] MEDS ORDERED: D50W (25GM) IV ONE ×2 (20:57→21:00)
[2016-05-29] MEDS ORDERED: COREG PO SCH (22:00)
[2016-05-29] MEDS ORDERED: ZOCOR PO SCH (22:00)
[2016-05-29] MEDS: LASIX PO SCH (22:27)
[2016-05-29] MEDS: PHOSLO PO SCH (22:28)
[2016-05-29] MEDS: COREG PO SCH (22:28)
[2016-05-29] MEDS: BABY ASPIRIN PO SCH (22:28)
[2016-05-30] MEDS ORDERED: HEPARIN SUB-Q SCH ×2 (06:00→14:00)
--- NOTE | 2016-05-30 09:44 | Consultation ---
Addendum entered and electronically signed by MEERA CARPENTER MD 12:45: Patient seen and examined Patient reports fatigue, weakness but denies any syncope or loss of consciousness. Tele reviewed - no arrhythmias recorded. Patient has been dealing with nausea, vomiting, postprandial abdominal pain, and diarrhea. US is showing a dilated gallbladder with evidence of sludge and a dilated common bile duct. An echo done this admission reveals no interval changes from her previous studies No heart failure symptoms on exam. Patient denies chest pain or shortness of breath. Fluid management is predominantly performed through HD. Discussed with family and Dr Lakhani. Presentation is not consistent with an arrhythmic event. Rather patient most likely feeling weak due to her nausea, vomiting and diarrhea. No further cardiac intervention is needed Follow-up with primary repairer sash and door as outpatient Original Note: History of Present Illness Consult date: 05/30/16 Consult reason: known to you, other (Cardiomyopathy) History of present illness: This is an frail 80yr old woman who presented to this hospital with complaints of dizziness. Patient states she woke up feeling weak and dizzy. Patient denies loss of consciousness. She denies palpitations. An ECG shows a sinus rhythm with nonspecific twave abnormalities. Patient reports she was seen in the ED a few days ago for n/v and abdominal pain. Patient denies nausea or vomiting in the last 48 hours. Cardiac consultation requested for cardiomyopathy. Patient has a known history of dilated cardiomyopathy. A cardiac cath done 3yrs ago shows a non-obstructive coronary artery disease, ejection fraction 35-40%. An echocardiogram done this admission reports a decreased ejection fraction of 15-20%. She denies chest pain and shortness of breath. There is no lower extremity edema. Past History Past Medical History: cancer (history of breast cancer), ESRD, heart failure ( chronic systolic CHF), hypertension, hyperlipidemia, other (lymphedema) Past Surgical History: mastectomy, Other (LUE fistula) Social history: , smoking (No smoke), alcohol abuse (No alcohol) Family history: CAD (father / sister ), stroke (father ) Medications and Allergies Allergies Allergy/AdvReac Type Severity Reaction Status Date / Time Penicillins Allergy Intermediate Itching Verified 05/29/15 12:44 Sulfa (Sulfonamide Allergy Intermediate Itching Verified 05/29/15 12:44 Antibiotics) levofloxacin [From Levaquin] Allergy Itching Verified 05/29/15 12:44 Home Medications Medication Instructions Recorded Confirmed Last Taken Type Calcium Acetate 667 mg PO TID 06/05/13 05/28/16 03/24/15 History Enalapril Maleate (Nf) 10 mg PO DAILY 06/05/13 05/28/16 03/24/15 History Simvastatin 20 mg PO HS 06/05/13 05/28/16 03/24/15 History Carvedilol [Coreg] 3.125 mg PO BID 04/22/14 05/28/16 03/24/15 History Aspirin 81 mg PO DAILY 09/25/15 05/28/16 Unknown History Furosemide 80 mg PO DAILY 09/25/15 05/28/16 Unknown History Isosorbide Mononitrate 20 mg PO DAILY 09/25/15 05/28/16 Unknown History Dorothy-Jesu Rx Tablet 1 tab PO DAILY 09/25/15 05/28/16 Unknown History Active Meds: Active Medications Acetaminophen (Tylenol) 650 mg PO Q4H PRN PRN Reason: Pain MILD(1-3)/Fever >100.5/NAVARRO Last Admin: 05/28/16 19:04 Dose: 650 mg Aspirin (Baby Aspirin) 81 mg PO QDAY [facility] Last Admin: 05/29/16 22:28 Dose: 81 mg Bisacodyl (Dulcolax) 10 mg ID QDAY PRN PRN Reason: Constipation unrelieved by MOM Calcium Acetate (Phoslo) 667 mg PO TIDWM [facility] Last Admin: 05/29/16 22:28 Dose: 667 mg Carvedilol (Coreg) 3.125 mg PO BID [facility] Last Admin: 05/29/16 22:28 Dose: 3.125 mg Furosemide (Lasix) 80 mg PO QDAY [facility] Last Admin: 05/29/16 22:27 Dose: 80 mg Heparin Sodium (Porcine) (Heparin) 5,000 unit SUB-Q Q8HR [facility] Hydralazine HCl (Apresoline) 10 mg IV Q2HR PRN PRN Reason: Hypertension Last Admin: 05/29/16 13:21 Dose: 10 mg Sodium Chloride (Nacl 0.9% 1000 Ml) 100 mls @ 999 mls/hr IV FÉLIX PRN PRN Reason: Hypotension Isosorbide Mononitrate (Monoket) 20 mg PO DAILY [facility] Lisinopril (Zestril) 10 mg PO QDAY [facility] Multivit/Ca Carb/B Cmplx/FA/Prenat (Renal Caps) 1 cap PO QDAY [facility] Ondansetron HCl (Zofran) 4 mg IV Q6H PRN PRN Reason: nausea or vomiting Last Admin: 05/29/16 05:58 Dose: 4 mg Simvastatin (Zocor) 20 mg PO HS [facility] Last Admin: 05/29/16 22:27 Dose: 20 mg Physical Examination Vital Signs Temp Pulse Resp BP Pulse Ox 97.4 F L 60 16 184/91 93 05/28/16 07:58 05/28/16 07:58 05/28/16 07:58 05/28/16 07:58 05/28/16 07:58 General appearance: no acute distress HEENT: Positive: PERRL Neck: Positive: trachea midline Cardiac: Positive: Reg Rate and Rhythm Lungs: Positive: Decreased Breath Sounds Neuro: Positive: Grossly Intact Extremities: Absent: edema Results 05/28/16 08:48 05/28/16 08:48 EKG interpretations - Telemetry EKG Rhythm: Sinus Rhythm Assessment and Plan Dizziness ESRD on HD Hypertension Hx of dilated cardiomyopathy echo reports a moderate MR, TR and pulmonary HTN; ejection fraction 15-20%. Hx of non-obstructive CAD
[2016-05-30] MEDS ORDERED: NON-FORMULARY (Rena-Vite Rx Tablet 1 TAB) PO SCH (10:00)
[2016-05-30] MEDS ORDERED: ZESTRIL PO SCH (10:00)
[2016-05-30] MEDS ORDERED: Renal Caps PO SCH (10:00)
[2016-05-30] MEDS ORDERED: MONOKET PO SCH (10:00)
--- NOTE | 2016-05-30 10:53 | Progress Note ---
Assessment and Plan Assessment: 1. ESRD on HD on T/T/S schedule 2. Pre-syncope, likely due to volume depletion in the setting of recent n/v vs due to worsening CHF 3. hypertension 4. chronic systolic HF repeat Echo shows decreased EF of 15-20% 5. Hep C 6. Anemia of ESRD 7. elevated troponin 8. Cholelithiasis Plan: - continue HD on T/T/S - BP improved on current meds. - will follow cardiology recs for management of CHF, currently on BB, JASPREET-I, will add spironolactone 25mg po qd. - hb at [facility] no need for EPO at present. d/w Dr. Lakhani,pt and family regarding renal care plan Subjective Date of service: 05/30/16 Interval history: patient awake, alert, in NAD Objective - Vital Signs Vital signs: Vital Signs - 12hr 05/30/16 05/30/16 05/30/16 00:00 04:00 07:50 Temperature 98.4 F 98.0 F 97.1 F L Pulse Rate [ 93 H 85 96 H Femoral] Respiratory 18 18 20 Rate Blood Pressure 133/58 144/62 131/86 [Right Femoral Artery] O2 Sat by Pulse 96 97 96 Oximetry - General Appearance General appearance: appears stated age, chronically ill, frail EENT: ATNC, PERRL, mucous membranes moist Neck: JVD Respiratory: Present: Clear to Ascultation Cardiology: regular, S1S2 Gastrointestinal: normal, normoactive bowel sounds Integumentary: no rash, other (no edema ) Neurologic: no focal deficit, alert and oriented x3, strength 5/5, CN 3-12 intact Psychiatric: mood/affect appropriate, cooperative - Lab 05/28/16 08:48 05/28/16 08:48 Most recent lab results Calcium 8.9 mg/dL (8.4-10.2) 05/28/16 08:48 Magnesium 2.0 mg/dL (1.7-2.3) 05/28/16 08:48
[2016-05-30] MEDS ORDERED: ALDACTONE PO SCH (11:00)
[2016-05-30 11:27] VITALS: BP 126/63
--- NOTE | 2016-05-30 11:33 | Progress Note ---
Hospitalist Physical - Constitutional Vitals: Temp Pulse Resp BP Pulse Ox 97.2 F L 94 H 20 126/63 96 05/30/16 11:26 05/30/16 11:26 05/30/16 11:26 05/30/16 11:26 05/30/16 11:26 General appearance: Present: no acute distress Results - Labs CBC & Chem 7: 05/28/16 08:48 05/28/16 08:48 Labs: Laboratory Last Values WBC 5.0 K/mm3 (4.5-11.0) 05/28/16 08:48 RBC 3.10 M/mm3 (3.65-5.03) L 05/28/16 08:48 Hgb 11.4 gm/dl (10.1-14.3) 05/28/16 08:48 Hct 34.0 % (30.3-42.9) 05/28/16 08:48 MCV 110 fl (79-97) H 05/28/16 08:48 MCH 37 pg (28-32) H 05/28/16 08:48 MCHC 33 % (30-34) 05/28/16 08:48 RDW 15.9 % (13.2-15.2) H 05/28/16 08:48 Plt Count 146 K/mm3 (140-440) 05/28/16 08:48 PT 12.4 Sec. (12.2-14.9) 05/28/16 08:48 INR 0.93 (0.87-1.13) 05/28/16 08:48 APTT 29.5 Sec. (24.2-36.6) 05/28/16 08:48 Sodium 136 mmol/L (137-145) L 05/28/16 08:48 Potassium 3.7 mmol/L (3.6-5.0) 05/28/16 08:48 Chloride 91.0 mmol/L (98-107) L 05/28/16 08:48 Carbon Dioxide 28 mmol/L (22-30) 05/28/16 08:48 Anion Gap 21 mmol/L 05/28/16 08:48 BUN 29 mg/dL (7-17) H 05/28/16 08:48 Creatinine 5.1 mg/dL (0.7-1.2) H 05/28/16 08:48 Estimated GFR 10 ml/min 05/28/16 08:48 BUN/Creatinine Ratio 5.68 % 05/28/16 08:48 Glucose 93 mg/dL (65-100) 05/28/16 08:48 POC Glucose 267 (70-105) H 05/29/16 21:17 Calcium 8.9 mg/dL (8.4-10.2) 05/28/16 08:48 Magnesium 2.0 mg/dL (1.7-2.3) 05/28/16 08:48 Total Bilirubin 1.9 mg/dL (0.1-1.2) H 05/28/16 08:48 AST 66 units/L (5-40) H 05/28/16 08:48 ALT 31 units/L (7-56) 05/28/16 08:48 Alkaline Phosphatase 291 units/L (35-129) H 05/28/16 08:48 Total Creatine Kinase 57 units/L (30-135) 05/28/16 08:48 CK-MB (CK-2) 2.0 ng/mL (0.0-4.0) 05/28/16 08:48 CK-MB (CK-2) Rel Index 3.5 (0-4) 05/28/16 08:48 Troponin T 0.151 ng/mL (0.00-0.029) H* 05/28/16 08:48 Total Protein 8.0 g/dL (6.3-8.2) 05/28/16 08:48 Albumin 2.9 g/dL (3.9-5) L 05/28/16 08:48 Albumin/Globulin Ratio 0.6 % 05/28/16 08:48 Triglycerides 214 mg/dL (2-149) H 05/28/16 08:48 Cholesterol 136 mg/dL (50-199) 05/28/16 08:48 LDL Cholesterol Direct 39 mg/dL (50-130) L 05/28/16 08:48 HDL Cholesterol 55 mg/dL (40-59) 05/28/16 08:48 Cholesterol/HDL Ratio 2.47 % 05/28/16 08:48 TSH 4.940 mlU/mL (0.270-4.200) H 05/28/16 08:48 Free T4 1.31 ng/dL (0.76-1.46) 05/28/16 08:48
[2016-05-30] MEDS: PHOSLO PO SCH ×2 (13:00→15:58)
--- NOTE | 2016-05-30 13:01 | Discharge Summary ---
Providers - Providers Date of Admission: 05/28/16 11:24 Date of discharge: 05/30/16 Attending physician: LYNNE MARKS 05/30/16 05:35 Consult to Physician [CONS] Routine Consulting Provider: MUSA SIMMONS Reason For Exam: Cardiomyopathy, worse EF Place consult to:: Dr. Simmons Notified:: answering service Phone number called:: [phone] Was contact made?: Yes If yes, spoke with:: Karen Time called:: 08:17 Primary care physician: ALEJO MORTON Hospitalization Condition: Fair Disposition: DISCHARGED TO HOME OR SELFCARE - Discharge Diagnoses (1) Vasovagal near-syncope Status: Acute (2) ESRD on hemodialysis Status: Acute Core Measure Documentation - Palliative Care Palliative Care/ Comfort Measures: Not Applicable Exam - Constitutional Vitals: Temp Pulse Resp BP Pulse Ox 97.2 F L 94 H 20 126/63 96 05/30/16 11:26 05/30/16 11:26 05/30/16 11:26 05/30/16 11:26 05/30/16 11:26 Plan Activity: advance as tolerated Diet: low fat, low cholesterol, renal Additional Instructions: 1.Follow up with PCP in 1 week. 2.Follow up with Dr. Buckley, Surgeon in 1 week. 3.Continue hemodialysis as scheduled Follow up with: ALEJO MORTON MD [Primary Care Provider] - 3-5 Days
[2016-05-30] MEDS: LASIX PO SCH (15:57)
[2016-05-30] MEDS: BABY ASPIRIN PO SCH (15:57)
[2016-05-30] MEDS: COREG PO SCH (16:00)
== END 2016-05-30 15:45 | disposition home or self-care (01) | DRG 312 ==
LOC: ED 07:23 → 4A 11:24
PROVIDERS: ADMIT Internal Medicine; ATTEND Internal Medicine
PROC: 5A1D60Z (ICD-10-PCS; principal; 2016-05-29)
DX: R55 Syncope and collapse (principal); N18.6 End stage renal disease; I13.2 Hypertensive heart and chronic kidney disease with heart failure and with stage 5 chronic kidney disease, or end stage renal disease; I50.22 Chronic systolic (congestive) heart failure; K21.9 Gastro-esophageal reflux disease without esophagitis; M19.90 Unspecified osteoarthritis, unspecified site; E78.5 Hyperlipidemia, unspecified; B19.20 Unspecified viral hepatitis C without hepatic coma; D63.1 Anemia in chronic kidney disease; K80.20 Calculus of gallbladder without cholecystitis without obstruction; I25.10 Atherosclerotic heart disease of native coronary artery without angina pectoris; Z99.2 Dependence on renal dialysis; Z79.899 Other long term (current) drug therapy; Z88.2 Allergy status to sulfonamides; Z88.0 Allergy status to penicillin; Z88.1 Allergy status to other antibiotic agents; Z87.442 Personal history of urinary calculi; Z90.11 Acquired absence of right breast and nipple; Z98.890 Other specified postprocedural states; Z85.3 Personal history of malignant neoplasm of breast; Z82.49 Family history of ischemic heart disease and other diseases of the circulatory system
CPT/HCPCS: 36415; 76705; 80053; 80061; 82550; 82553; 82962; 83735; 84439; 84443; 84484; 85027; 85610; 85730; 93005; 93010; 93306; 96374; J0360; J1644; J2270; J2405

== ENCOUNTER 2016-06-03 16:39 | Emergency (ER) | payer MEDICARE ==
--- NOTE | 2016-06-03 17:37 | Emergency Department Report ---
HPI - General Chief Complaint: Fall Time Seen by Provider: 06/03/16 17:24 - HPI HPI: This is an 80-year-old -Filipino female who presents to the emergency department from home with her family after she had a fall earlier today. It was not witnessed but the patient denies any loss of consciousness. She says that her head just "just smacked the floor." It caused some bruising around the right eye and a laceration just above the right eye on the eyebrow. She denies any neck pain, back pain, chest pain, shortness of breath, hip pain. She did not take anything for symptoms prior to presentation. The patient was recently admitted to [facility] and discharge for the complaints of generalized weakness, nausea, vomiting and she says they were working her up for possible gallstones. Patient does not normally walk with any type of walker , cane or ambulatory assistance. 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 Durbin. She is a chronic kidney disease patient on hemodialysis on Saturday, and Saturday and said she had her session yesterday. ED Past Medical Hx - Past Medical History Previous Medical History?: Yes Hx Hypertension: Yes Hx Congestive Heart Failure: Yes Hx GERD: Yes Hx Liver Disease: Yes Hx Renal Disease: Yes (, , Sat) Hx of Cancer: Yes (breast cancer, in remission) Hx Arthritis: Yes Hx Kidney Stones: Yes Hx HIV: No Additional medical history: hep c/ lymphedema. gallstones - Surgical History Past Surgical History?: Yes Hx Breast Surgery: Yes (mastectomy R.) Additional Surgical History: Fistula placement to left arm. right mastectomy - Social History Smoking Status: Former Smoker Substance Use Type: None - Medications Home Medications: Home Medications Medication Instructions Recorded Confirmed Last Taken Type Calcium Acetate 667 mg PO TID 06/05/13 05/28/16 03/24/15 History Enalapril Maleate (Nf) 10 mg PO DAILY 06/05/13 05/28/16 03/24/15 History Simvastatin 20 mg PO HS 06/05/13 05/28/16 03/24/15 History Carvedilol [Coreg] 3.125 mg PO BID 04/22/14 05/28/16 03/24/15 History Aspirin 81 mg PO DAILY 05/22/16 01/23/17 Unknown History Furosemide 80 mg PO DAILY 09/25/15 05/28/16 Unknown History Isosorbide Mononitrate 20 mg PO DAILY 09/25/15 05/28/16 Unknown History Dorothy-Jesu Rx Tablet 1 tab PO DAILY 09/25/15 05/28/16 Unknown History ED Review of Systems ROS: Stated complaint: FALL/HEAD INJURY Other details as noted in HPI Comment: All other systems reviewed and negative Constitutional: denies: chills, fever Eyes: denies: eye pain, eye discharge, vision change ENT: other (facial trauma). denies: ear pain, throat pain Respiratory: denies: cough, shortness of breath, wheezing Cardiovascular: denies: chest pain, palpitations Gastrointestinal: denies: abdominal pain, nausea, diarrhea Genitourinary: denies: urgency, dysuria, discharge Musculoskeletal: denies: back pain, joint swelling, arthralgia Skin: other (laceration). denies: rash, lesions Neurological: weakness. denies: numbness Physical Exam - Physical Exam Vital Signs: Vital Signs 06/03/16 17:10 Temperature 97.5 F L Pulse Rate 57 L Respiratory 16 Rate Blood Pressure 156/59 Blood Pressure 156/59 [left leg] O2 Sat by Pulse 97 Oximetry Physical Exam: GENERAL: The patient is well-developed well-nourished. HEENT: Normocephalic. Extraocular motions are intact. Patient has moist mucous membranes. There is a transverse laceration to the right eyebrow that is about 1.5 cm in length. There is right periorbital ecchymosis and nonpitting edema. The patient is able to open the right eye. Pupils are equal reactive to light bilaterally. No nystagmus. No septal hematoma. No drooling or trismus. NECK: Supple. Full range of motion. Nontender to palpation. CHEST/LUNGS: Clear to auscultation. There is no respiratory distress noted. HEART/CARDIOVASCULAR: Regular. There is no tachycardia. There is no gallop rub or murmur. ABDOMEN: Abdomen is soft, nontender. Patient has normal bowel sounds. There is no abdominal distention. SKIN: There is a transverse laceration to the right eyebrow that is about 1.5 cm in length. There is right periorbital ecchymosis and nonpitting edema. NEURO: The patient is awake, alert, and oriented. The patient is cooperative. The patient has no focal neurologic deficits. The patient has normal speech. Cranial nerves II through XII grossly intact. MUSCULOSKELETAL: There is no tenderness or deformity. There is no limitation range of motion. There is no evidence of acute injury. No tenderness to palpation to compression of the pelvis. ED Course Vital Signs 06/03/16 17:10 Temperature 97.5 F L Pulse Rate 57 L Respiratory 16 Rate Blood Pressure 156/59 Blood Pressure 156/59 [left leg] O2 Sat by Pulse 97 Oximetry - Consultations Consultation #1: Patient's CT results show a right-sided subdural hematoma with extension into the subarachnoid region. She also has a blowout fracture of the inferior right orbit. Patient has been accepted for transfer ER to ER by the trauma attending at [facility], Dr. Tse. 06/03/16 18:38 ED Medical Decision Making - EKG Data -: EKG Interpreted by Me EKG shows normal: sinus rhythm (with marked sinus arrhythmia), axis (left axis deviation), intervals, QRS complexes (Q waves to the septal leads), ST-T waves ( flattened T waves) Rate: normal - EKG Data When compared to previous EKG there are: previous EKG unavailable Interpretation: other (sinus arrhythmia, left axis deviation, Q waves to the septal leads, flattened T waves) - Radiology Data Radiology results: report reviewed, image reviewed interpreted by me: Chest x-ray did not show any acute process. Heart is normal shape and size. No effusions. No pneumothorax. No signs of pneumonia seen. X-ray of the pelvis does not show any fracture, dislocation or any acute process. CT of the head without contrast shows acute right parafalcine subdural hematoma with small subarachnoid extension. Right orbital fractures described on today' s facial series. CT of the cervical spine shows multilevel degenerative disc disease but otherwise no acute abnormality seen. CT of the facial bones shows a blowout type fracture of the right orbital floor. There is inferior displacement of the fracture fragments. Small amount of intraorbital air is seen. Fluid is present throughout the right maxillary sinus. Large intraorbital hematoma seen. To placement - Medical Decision Making 80-year-old female presents to the emergency department after having a fall and hitting her head. Patient had CT imaging of the head, facial bones, cervical spine, and x-ray imaging of the chest and pelvis. The x-rays did not show any acute process. CT of the head shows right parafalcine subdural hematoma with extension into the subarachnoid space. The facial bone CT shows a blowout right orbital fracture of the floor. Patient is neurovascularly intact at this time. She was accepted for transfer by [place] trauma surgery. All the patient' s imaging was sent along with the patient. Vital signs stable throughout her ED course. Patient and family updated and understands and agrees to the plan. - Differential Diagnosis brain bleed, skull fracture, facial fracture, contusion, hip fracture Critical Care Time: No Critical care attestation.: If time is entered above; I have spent that time in minutes in the direct care of this critically ill patient, excluding procedure time. ED Disposition Clinical Impression: Subdural hematoma, Subarachnoid hemorrhage, Orbital floor (blow-out) closed fracture Fall Qualifiers: Encounter type: initial encounter Qualified Code(s): W19.XXXA - Unspecified fall, initial encounter Disposition: DC/TX ANOTHER TYPE HEALTHCARE Is pt being admited?: No Condition: Stable Referrals: ALEJO DURBIN MD [Primary Care Provider] - 3-5 Days Time of Disposition: 21:04
[2016-06-03] MEDS ORDERED: XYLOCAINE 1% 20 mL ONE (17:40)
--- NOTE | 2016-06-03 18:15 | Cat Scan Report ---
FINAL REPORT EXAM: CT HEAD/BRAIN WO CON HISTORY: Fall, head trauma TECHNIQUE: CT head without contrast PRIORS: None. FINDINGS: There is acute right parafalcine subdural hematoma 0.4 centimeters in transverse diameter. There is some subarachnoid extension on the right. No evidence for midline shift or mass effect. Ventricles are within normal limits. No acute parenchymal abnormalities are seen Noted is a right orbital fracture further described on today's facial series. IMPRESSION: Acute right parafalcine subdural hematoma with small subarachnoid extension Right orbital fractures further described on today's facial series
--- NOTE | 2016-06-03 18:18 | Cat Scan Report ---
FINAL REPORT EXAM: CT FACIAL BONES WO CON HISTORY: fall, facial trauma TECHNIQUE: CT facial bones with multiplanar reconstructions PRIORS: None. FINDINGS: There is acute blowout type fracture of the right orbital floor. There is inferior displacement of fracture fragments. Small amount of intraorbital air is seen. Fluid is present throughout the right maxillary sinus. No evidence for rectus muscle entrapment. Large intraorbital hematoma seen. There is right periorbital soft tissue swelling No additional acute findings Nasal bone is intact. Remaining paranasal sinuses are unremarkable. IMPRESSION: Blowout type fracture of the right orbital floor as described above
--- NOTE | 2016-06-03 18:23 | Cat Scan Report ---
FINAL REPORT EXAM: CT CERVICAL SPINE WO CON HISTORY: Fall TECHNIQUE: CT of the cervical spine without contrast multiplanar reconstructions obtained PRIORS: None. FINDINGS: No acute fracture identified. Vertebral bodies demonstrate normal height and alignment. There is multilevel degenerative disc changes with disc space narrowing from C2-C3 through C6-C7 and C7-T1. Spinous processes are intact. Facet joints demonstrate normal alignment. IMPRESSION: Multilevel degenerative disc disease. No acute abnormality seen.
[2016-06-03 19:29] VITALS: BP 134/56
--- NOTE | 2016-06-04 08:33 | XRay Report ---
AP pelvis: No evidence of fracture or joint displacements. Bones are well-mineralized. There is narrowing of the superior and medial aspects of the right hip joint relative to the left side. The articular margins appear smooth. There is vascular calcification identified in the abdominal aorta and iliofemoral vessels. Impression: No acute findings.
--- NOTE | 2016-06-04 08:35 | XRay Report ---
AP chest: There is a mild generalized increase in the interstitial pulmonary pattern. No infiltrates, nodules, or effusions identified. There may be mild enlargement of the heart the this could be situated by positioning. Vascular stents are present in the left proximal arm and axilla. The findings appear essentially unchanged from February 12, 2016. Impression: No acute findings.
== END 2016-06-03 20:25 | disposition other institution (70) ==
LOC: ED 16:39
DX: S06.6X0A Traumatic subarachnoid hemorrhage without loss of consciousness, initial encounter (principal); S06.5X0A Traumatic subdural hemorrhage without loss of consciousness, initial encounter; S02.31XA Fracture of orbital floor, right side, initial encounter for closed fracture; I50.9 Heart failure, unspecified; K21.9 Gastro-esophageal reflux disease without esophagitis; I12.9 Hypertensive chronic kidney disease with stage 1 through stage 4 chronic kidney disease, or unspecified chronic kidney disease; N18.9 Chronic kidney disease, unspecified; M19.90 Unspecified osteoarthritis, unspecified site; Z85.3 Personal history of malignant neoplasm of breast; Z87.891 Personal history of nicotine dependence; W19.XXXA Unspecified fall, initial encounter; Y93.89 Activity, other specified; Y99.8 Other external cause status; Y92.89 Other specified places as the place of occurrence of the external cause
CPT/HCPCS: 70450; 70486; 71010; 72125; 72170; 93005; 93010

== ENCOUNTER 2016-10-22 05:49 | Day surgery (SDC) | payer MEDICARE ==
[2016-10-22] MEDS ORDERED: VANCOMYCIN/NS 1 GM/250 ML 1 GM/250 ML BAG IV NR (06:00)
[2016-10-22] MEDS ORDERED: NACL 0.9% 1000 ML 1,000 ML IV SCH (06:00)
[2016-10-22] MEDS ORDERED: PEPCID IV NR (06:00)
[2016-10-22] MEDS ORDERED: NACL BACTERIOSTATIC INFILTRATI ONE (06:39)
[2016-10-22] MEDS ORDERED: ZOFRAN ONE (07:08)
[2016-10-22] MEDS ORDERED: SUBLIMAZE ONE (07:08)
[2016-10-22] MEDS ORDERED: DIPRIVAN 10 MG/ML IV ONE (07:08)
[2016-10-22] MEDS ORDERED: DECADRON ONE (07:08)
[2016-10-22] MEDS ORDERED: XYLOCAINE MPF 2% ONE (07:08)
[2016-10-22] MEDS ORDERED: ZEMURON IV ONE (07:08)
--- NOTE | 2016-10-22 07:19 | Anesthesia Consultation ---
Anesthesia Consult and Med Hx Date of service: 10/22/16 - Airway Anesthetic Teeth Evaluation: Edentulous ROM Head & Neck: Inadequate Mental/Hyoid Distance: Adequate Mallampati Class: Class II Intubation Access Assessment: Probably Good - Pulmonary Exam CTA: Yes - Cardiac Exam Cardiac Exam: RRR - Pre-Operative Health Status ASA Pre-Surgery Classification: ASA3 Proposed Anesthetic Plan: General - Pre-Anesthesia Comment Pre-Anesthesia Comments: 07/09 holoosystolic murmur - Pulmonary Hx Smoking: Yes (CIGARETTES 1 PPW X 50 YRS, QUIT IN 1999) Hx Pneumonia: Yes Hx Sleep Apnea: No - Cardiovascular System Hx Hypertension: Yes (FOR 20+ YRS, DR. MORTON- PCP, DR. SIMMONS- [employer]) - Central Nervous System Hx Psychiatric Problems: Yes - Endocrine Hx Renal Disease: Yes (Carri Orozco, Sat: H/O CHF but breathing at her baseline presently.) Hx End Stage Renal Disease: Yes (FOR 7 YRS) Hx Cirrhosis: Yes Hx Liver Disease: Yes - Other Systems Hx Alcohol Use: Yes Hx Cancer: Yes (RIGHT BREAST, DX: [place] 1996, significant swelling in L breast)
--- NOTE | 2016-10-22 07:20 | Anesthesia Day of Surgery ---
Anesthesia Day of Surgery - Day of Surgery Patient Examined: Yes Patient H&P Reviewed: Yes Patient is NPO: Yes Cardiac Clearance: Yes
[2016-10-22] MEDS ORDERED: MARCAINE-EPI 0.25%-1:200,000 INFILTRATI ONE ×3 (07:34→08:42)
[2016-10-22] MEDS ORDERED: AMIDATE IV ONE (07:37)
[2016-10-22 07:44] LABS: Hematocrit 37.4 % (30.3-42.9); Hemoglobin 12.3 gm/dl (10.1-14.3)
[2016-10-22] MEDS ORDERED: ROBINUL ONE ×3 (08:21→08:35)
[2016-10-22] MEDS ORDERED: NEOSTIGMINE ONE (08:35)
[2016-10-22] MEDS ORDERED: NACL 0.9% IR ONE ×2 (08:42→08:53)
--- NOTE | 2016-10-22 09:53 | Operative Report ---
Operative Report Operative Report: Date of procedure: 10/22/2016 Pre-operative diagnosis: Chronic cholecystitis Post-operative diagnosis: Same Procedure name(s): Laparoscopic cholecystectomy Surgeon: Naveen Buckley MD [employer] Supervisor: None Anesthesia: General EBL: 250 mL Complications: None Instrument Count: correct Indications: This is an 81-year-old female with a history of abdominal pain who was workup was consistent with a biliary etiology. She was offered the above- named procedures a possible treatment modality. The risks and benefits of discussed until all questions were answered. She was subsequently brought to the OR. Findings: Chronic cholecystitis with omental adhesions, omental varices Procedure: We reviewed the informed consent. We placed the patient supine upon the table. After adequate anesthesia was reached, the patient was prepped and draped in usual sterile fashion. A 5 mm incision was made the level of umbilicus and a Veress needle was placed at this position. The abdomen was then insufflated to 15 mmHg and a 5 mm trocar was placed through the umbilical incision. We inserted the camera at this time. Under direct vision and after infiltration of local anesthetic an 11 mm port was placed in the epigastric location. This was followed by placement of two five mm ports in the right upper quadrant. We identified the gallbladder and the fundus was grasped. There was a omentum to the fundus and this was taken off using electrocautery however the patient had omental variceals. These were clipped using a clip client server programmer. Gallbladder was then able to be retracted superiorly. We then grasped the infundibulum and retracted it laterally. At this time we dissected free the cystic duct infundibular junction until the triangle of Calot was clearly identified. We placed 3 clips proximally on the cystic duct, 2 distally. We placed 2 clips proximally on the cystic artery. The duct was noted to be too large for the clips at this time We transected the cystic duct sharply. A 0 Endoloop was then placed over the cystic duct stump area We transected the cystic artery using electrocautery. We then dissected the gallbladder free from its fossa using electrocautery. This was placed in Endo Catch bag and removed the abdomen to be sent to pathology for further evaluation. We assured hemostasis at this time. We then vigorously irrigated the right upper quadrant removing any old blood. We then evacuated the insufflation. We removed all ports and closed all port sites using a 4-0 Monocryl in a subcuticular fashion. Fascia was closed using a 0 Vicryl on a UR 6 needle The wounds were bandaged sterilely. The patient tolerated procedure well. They were taken to PACU in no apparent distress after extubation.
--- NOTE | 2016-10-22 09:56 | Short Stay Summary ---
Short Stay Documentation Date of service: 10/22/16 - History H&P: obtained from office - Allergies and Medications Current Medications: Allergies Penicillins Allergy (Intermediate, Verified 05/29/15 12:44) Itching Sulfa (Sulfonamide Antibiotics) Allergy (Intermediate, Verified 05/29/15 12:44) Itching levofloxacin [From Levaquin] Allergy (Verified 05/29/15 12:44) Itching tomato Allergy (Verified 10/17/16 13:18) Itching Home Medications Medication Instructions Recorded Confirmed Last Taken Type Calcium Acetate 667 mg PO TID 06/05/13 10/17/16 10/21/16 History Enalapril Maleate (Nf) 10 mg PO DAILY 06/05/13 10/17/16 10/22/16 03:30 History Simvastatin 20 mg PO HS 06/05/13 10/17/16 10/21/16 History Carvedilol [Coreg] 3.125 mg PO BID 04/22/14 10/17/16 10/22/16 03:30 History Dorothy-Jesu Rx Tablet 1 tab PO DAILY 09/25/15 10/17/16 10/21/16 History FLUoxetine [PROzac] 20 mg PO QDAY 10/17/16 10/17/16 10/21/16 History Omeprazole Magnesium [PriLOSEC Otc] 20 mg PO QDAY 10/17/16 10/17/16 10/22/16 03: 30 History Albuterol Sulfate [Proair Hfa] 1 puff IH PRN PRN 10/22/16 10/22/16 10/21/16 History Active Medications Famotidine (Pepcid) 20 mg IV PREOP NR Stop: 10/22/16 16:00 Last Admin: 10/22/16 07:36 Dose: 20 mg Vancomycin HCl (Vancomycin/Ns 1 Gm/250 Ml) 1 gm in 250 mls @ 167.007 mls/hr IV PREOP NR PRN Reason: Protocol Stop: 10/22/16 23:00 Last Admin: 10/22/16 07:40 Dose: 167.007 mls/hr Sodium Chloride (Nacl 0.9% 1000 Ml) 1,000 mls @ 75 mls/hr IV DIRECT VALARIE Last Admin: 10/22/16 07:25 Dose: 75 mls/hr - Brief post op/procedure progress note Date of procedure: 10/22/16 Pre-op diagnosis: chronic cholecystitis Post-op diagnosis: same Procedure: Laparoscopic cholecystectomy Anesthesia: GETA Findings: per operative note note Surgeon: COLE GILLILAND Estimated blood loss: minimal Pathology: list (gallbladder) Specimen disposition: to lab Condition: stable - Disposition Condition at discharge: Stable Disposition: DC- TO HOME OR SELFCARE Short Stay Discharge Plan Activity: no restrictions Diet: low fat Follow up with: ALEJO MORTON MD [Primary Care Provider] - 7 Days COLE GILLILAND MD [Staff Physician] - 7 Days Prescriptions: HYDROcodone/APAP 5-325 [Crivitz 5/325] 1 each PO Q6HR PRN #30 tablet PRN Reason: Pain
--- NOTE | 2016-10-22 10:08 | Post Anesthesia Evaluation ---
- Post Anesthesia Evaluation Patient Participated: Yes Airway Patent: Yes Stable Respiratory Function: Yes Nausea/Vomiting: No Temp > 96.8F: Yes Pain Manageable: Yes Adequeate Hydration: Yes Anesthesia Complications: No
[2016-10-22] MEDS: DILAUDID IV PRN ×3 (10:29→11:08)
[2016-10-22] MEDS ORDERED: DILAUDID ONE (10:30)
[2016-10-22] MEDS ORDERED: PERCOCET 5/325 PO ONE (12:30)
[2016-10-22 19:24] VITALS: BP 151/93
== END 2016-10-22 13:50 | disposition home or self-care (01) ==
LOC: OR 05:49
PROVIDERS: ATTEND Surgery
DX: K80.10 Calculus of gallbladder with chronic cholecystitis without obstruction (principal); K82.8 Other specified diseases of gallbladder; I13.2 Hypertensive heart and chronic kidney disease with heart failure and with stage 5 chronic kidney disease, or end stage renal disease; N18.6 End stage renal disease; I50.22 Chronic systolic (congestive) heart failure; D63.1 Anemia in chronic kidney disease; Z87.19 Personal history of other diseases of the digestive system; Z72.89 Other problems related to lifestyle; Z85.3 Personal history of malignant neoplasm of breast; Z87.891 Personal history of nicotine dependence; Z87.01 Personal history of pneumonia (recurrent); Z88.0 Allergy status to penicillin; Z88.2 Allergy status to sulfonamides; Z88.8 Allergy status to other drugs, medicaments and biological substances; Z91.018 Allergy to other foods; Z79.899 Other long term (current) drug therapy; Z86.718 Personal history of other venous thrombosis and embolism; Z90.49 Acquired absence of other specified parts of digestive tract
CPT/HCPCS: 36415; 47562; 82962; 84132; 85014; 85018; 88304; A4217; J1170; J2405; J2704; J2710; J3010; J3370; J7030; J1100